=== PATIENT | male | born 1980 | race Two or more races ===

== ENCOUNTER 2020-01-02 13:39 | Emergency (ER) | payer BC, OTHER ==
--- NOTE | 2020-01-02 13:52 | TELE ---
HPI Do you have fever,cough or shortness of breath?: No - General Reason For Visit: COVID 19 TEST Past History - Travel History Traveled outside of the country in the last 30 days: No Close contact w/someone who was outside of country & ill: No Review of Systems - Review of Systems Able to Perform ROS?: Yes Comments:: 01/02/20 14:01 CONSTITUTIONAL: Absent: fever, chills, diaphoresis, generalized weakness, malaise, loss of appetite HEENT: Present: Rhinorrhea Absent: nasal congestion, throat pain, throat swelling, di fficulty swallowing, mouth swelling, ear pain, eye pain, visual Changes CARDIOVASCULAR: Absent: chest pain, loss of consciousness, palpitations, irregular heart rate, peripheral edema RESPIRATORY: Absent: cough, shortness of breath, dyspnea with exertion, orthopnea, wheezing, stridor, hemoptysis GASTROINTESTINAL: Absent: abdominal pain, abdominal distension, nausea, vomiting, diarrhea, constipation, melena, hematochezia SKIN: Absent: rash, itching, pallor NEUROLOGIC: Absent: headache, focal weakness or paresthesias, dizziness, unsteady gait, seizure, mental status changes, bladder or bowel incontinence PSYCHIATRIC: Absent: anxiety, depression, suicidal or homicidal ideation, hallucinations. Limited Arabic proficient: No *Physical Exam - Physical Exam 01/02/20 14:01 GENERAL: Well developed, well nourished. Awake and alert. No acute distress. HEENT: Normocephalic, atraumatic. PERRLA, EOMI. NECK: Supple. Full ROM. PULMONARY: No evidence of respiratory distress. EXTREMITIES: No cyanosis. SKIN: Warm and dry. Normal capillary refill. No rashes. No jaundice. NEUROLOGICAL: Alert, awake, appropriate. PSYCHIATRIC: Cooperative. Good eye contact. Appropriate mood and affect. - Medical Decision Making 01/02/20 14:02 Patient is a 39-year-old male no past medical history who [facility]. Patient states that he recently traveled to the country that had high Covid rates and he has a slight runny nose. He needs a Covid swab to return back to work, given his symptoms. A/P: Need for Covid swab On exam patient appears in no distress. Covid swab ordered. Patient sent to [facility] Isolation precautions given Discharge Diagnosis at time of Disposition: Exposure to COVID-19 virus, Rhinorrhea - Referrals Follow-up Referral(s): Marcelle Simmons MD [Primary Care Provider] - - Patient Instructions
== END 2020-01-02 14:04 | disposition home or self-care (01) ==
LOC: JVIRT 13:39
DX: Z11.59 Encounter for screening for other viral diseases (principal)
CPT/HCPCS: C9803; Q3014-GT; U0003

== ENCOUNTER 2020-04-12 18:14 | Emergency (ER) | payer BC, OTHER ==
[2020-04-12 18:38] VITALS: TEMP 101.3; BMI 25.1
[2020-04-12] MEDS ORDERED: ACETAMINOPHEN 1000 MG/100 ML VIAL (NON FORMULARY) IVPB ONE (19:06)
[2020-04-12] MEDS ORDERED: SODIUM CHLORIDE 2,313 ML IV ONE (19:07)
[2020-04-12] MEDS ORDERED: ACETAMINOPHEN INJECTION 100 ML IVPB ONE (19:14)
[2020-04-12] MEDS ORDERED: ALBUTEROL SO4 HFA INHALER IH ONE ×2 (19:32→19:45)
[2020-04-12 19:46] LABS: BASO % 0.3 % (0-2.0); EOS % 1.5 % (0-4.5); HEMATOCRIT 45.6 % (35.4-49); HEMOGLOBIN 15.8 GM/dL (11.7-16.9); LYMPH % 8.6 % (8-40); MCH 30.7 pg (25.7-33.7); MCHC 34.6 g/dl (32.0-35.9); MEAN CELL VOLUME 88.6 fl (80-96); MONO % 6.4 % (3.8-10.2); NEUT % 83.2 % (42.8-82.8); PLATELET COUNT 216 K/MM3 (134-434); RBC 5.14 M/mm3 (4.00-5.60); RDW 12.4 % (11.9-15.9); WHITE BLOOD COUNT 13.4 K/mm3 (4.0-10.0)
[2020-04-12 20:08] LABS: INR 1.07 (0.83-1.09); PROTHROMBIN TIME (PATIENT) 12.9 SEC (9.7-13.0)
[2020-04-12 20:12] LABS: ACTIVATED PTT 32.5 SECONDS (25.2-36.5)
[2020-04-12 20:20] LABS: N-TERMINAL BNP 9.3 pg/ml (5-125)
[2020-04-12 20:21] LABS: LDH 266 U/L (87-246)
[2020-04-12] MEDS ORDERED: DEXAMETHASONE SOD PHOSPHATE 4 MG/1 ML VIAL IVPUSH ONE (20:59)
[2020-04-12 21:01] LABS: PH,URINE 6.5 (5.0-8.0); URINE APPEARANCE CLEAR; URINE BILIRUBIN NEGATIVE (NEGATIVE); URINE COLOR YELLOW; URINE GLUCOSE (UA) NEGATIVE (NEGATIVE); URINE KETONE NEGATIVE (NEGATIVE); URINE LEUK ESTERASE NEGATIVE (NEGATIVE); URINE NITRITE NEGATIVE (NEGATIVE); URINE PROTEIN NEGATIVE (NEGATIVE); URINE UROBILINOGEN 0.2 mg/dL (0.2-1.0)
[2020-04-12 21:01] LABS: CHLORIDE 104 mmol/L (98-107); SODIUM 137 mmol/L (136-145)
[2020-04-12 21:02] LABS: CALCIUM 9.2 mg/dL (8.5-10.1)
[2020-04-12 21:03] LABS: ALBUMIN 4.2 g/dl (3.4-5.0); ANION GAP 5 MMOL/L (8-16); BLOOD UREA NITROGEN 12.7 mg/dL (7-18); CO2 29 mmol/L (21-32); GLUCOSE,RANDOM 100 mg/dL (74-106)
[2020-04-12 21:06] LABS: CREATININE 1.1 mg/dL (0.55-1.3); SGOT/AST 68 U/L (15-37); SGPT/ALT 78 U/L (13-61)
[2020-04-12 21:08] LABS: BILIRUBIN,TOTAL 1.1 mg/dL (0.2-1); TOT PROT 7.6 g/dl (6.4-8.2)
[2020-04-12 21:09] LABS: ALK PHOS 79 U/L (45-117)
[2020-04-12] MEDS ORDERED: DEXAMETHASONE SOD PHOSPHATE 10 MG/1 ML VIAL ONE (21:12)
[2020-04-12 22:01] VITALS: BP 155/89; PULSE 102
== END 2020-04-12 22:08 | disposition home or self-care (01) ==
LOC: JER 18:14
PROC: 3E0333Z Introduction of Anti-inflammatory into Peripheral Vein, Percutaneous Approach (ICD-10-PCS; principal; 2020-04-12)
PROC: 3E033GC Introduction of Other Therapeutic Substance into Peripheral Vein, Percutaneous Approach (ICD-10-PCS; 2020-04-12)
PROC: 3E0337Z Introduction of Electrolytic and Water Balance Substance into Peripheral Vein, Percutaneous Approach (ICD-10-PCS; 2020-04-12)
PROC: 3E0337Z Introduction of Electrolytic and Water Balance Substance into Peripheral Vein, Percutaneous Approach (ICD-10-PCS; 2020-04-12)
DX: J06.9 Acute upper respiratory infection, unspecified (principal)
CPT/HCPCS: 36415; 71045-TC-FY; 80053; 81003; 82728; 83605; 83615; 83880; 84484; 85025; 85379; 85610; 85730; 86140; 87040; 87086; 87804; 93005; 93010; 99285-25; C9803; J0131; U0003

== ENCOUNTER 2020-06-09 03:37 | Emergency (ER) | payer BC, OTHER ==
[2020-06-09 04:44] VITALS: BMI 28.1
[2020-06-09] MEDS ORDERED: DEXAMETHASONE LIQUID 0.5 MG/5 ML PO ONE (05:03)
[2020-06-09] MEDS ORDERED: ALBUTEROL SO4 2.5/IPRATROPIUM 0.5 INH SOL 3 ML VIAL.NEB. NEB ONE (05:03)
[2020-06-09] MEDS ORDERED: DEXAMETHASONE SOD PHOSPHATE 10 MG/1 ML VIAL ONE (05:12)
[2020-06-09 06:26] VITALS: BP 124/88; PULSE 88; TEMP 97.4
== END 2020-06-09 06:40 | disposition home or self-care (01) ==
LOC: JER 03:37
PROC: 3E0F7GC Introduction of Other Therapeutic Substance into Respiratory Tract, Via Natural or Artificial Opening (ICD-10-PCS; principal; 2020-06-09)
DX: R06.2 Wheezing (principal); R06.02 Shortness of breath
CPT/HCPCS: 71046-TC-FY; 93005; 93010; 99284-25